=== PATIENT | female | born 1980 | race Caucasian/White ===

== ENCOUNTER 2017-05-07 09:00 | Outpatient (CLI) | payer BC ==
[~2017-05-07] VITALS: Ht 165.1 cm; Wt 93.4 kg
[~2017-05-07 09:00] MED LIST: CPR500T PO; ESCI20TA2 PO; FLUO20CA42; HYDR-34; IBP800T; PREN1TAB4 PO
[2017-05-07] MEDS ORDERED: CHLO500T4 PO (09:14)
[2017-05-07] MEDS ORDERED: AMIT75TA2 PO (09:14)
[2017-05-07] MEDS ORDERED: DICL75TA2 PO (09:14)
[2017-05-07] MEDS ORDERED: OMG1KC PO (09:14)
[2017-05-07] MEDS ORDERED: PSEU-137 PO (09:14)
[2017-05-07] MEDS ORDERED: GUAI600T43 PO (09:14)
[2017-05-07] MEDS ORDERED: MULT-1038 PO (09:14)
== END 2017-05-07 09:27 ==
LOC: PREOP 09:00
PROVIDERS: ATTEND Surgery
DX: Z01.818 Encounter for other preprocedural examination (principal); K42.9 Umbilical hernia without obstruction or gangrene

== ENCOUNTER 2017-05-13 06:10 | Day surgery (SDC) | payer BC ==
[~2017-05-13] VITALS: Ht 165.1 cm; Wt 93.4 kg
[~2017-05-13 06:10] MED LIST changes: +AMIT75TA2 PO; +CHLO500T4 PO; +DICL75TA2 PO; +GUAI600T43 PO; +MULT-1038 PO; +OMG1KC PO; +PSEU-137 PO
--- OUTSIDE RECORDS SUMMARY | 2017-05-13 06:16 | XMS REPORT | Clinical Summary ---
Author Author [facility] Organization [facility] Address Unknown Phone Unavailable Care Team Providers Care Merchandise Carrier Name Role Phone PCP Unavailable Source Comments Some departments are not documenting in the electronic medical record. If you do not see the information that you expected, contact Release of Information in the Health Information Management department at [phone] for further assistance in locating additional records.[facility] Allergies No Known Allergies Current Medications Prescription Sig. Disp. Refills Start End Date Status Date pregabalin (LYRICA) 300 Take 300 mg by mouth Active mg capsule twice daily. tapentadol (NUCYNTA ER) Take by mouth twice daily Active 150 mg Tb12 doxycycline (VIBRAMYCIN) Take 100 mg by mouth Active 100 mg tablet twice daily. topiramate (TOPAMAX) 50 Take 50 mg by mouth. 50mg Active mg tablet AM, 100mg PM allopurinol (ZYLOPRIM) Take 300 mg by mouth Active 300 mg tablet daily. nitrofurantoin Take 100 mg by mouth Active (MACRODANTIN) 100 mg daily. capsule desogestrel-ethinyl Take 1 Tab by mouth Active estradiol (DESOGEN; daily. ORTHO-CEPT (28); APRI; SOLIA; RECLIPSEN (28); EMOQUETTE) tablet DOCOSAHEXANOIC ACID/EPA Take by mouth twice Active (FISH OIL PO) daily. MULTIVITAMIN PO Take by mouth daily. Active loratadine (CLARITIN) 10 Take 10 mg by mouth Active mg tablet daily. oxyCODONE-acetaminophen Take 1-2 Tabs by mouth as Active (PERCOCET; ENDOCET; Needed for Pain ROXICET) 5-325 mg tablet Active Problems Not on file Family History Medical History Relation Name Comments Arthritis Mother Relation Name Status Comments Mother Social History Tobacco Use Types Packs/Day Years Used Date Current Every Day Smoker Cigarettes 0.5 Smokeless Tobacco: Never Used Alcohol Use Drinks/Week oz/Week Comments No Sex Assigned at Date Recorded Not on file Last Filed Vital Signs Vital Sign Reading Time Taken Blood Pressure 116/73 01/04/2015 10:28 AM CDT Pulse 80 01/04/2015 10:28 AM CDT Temperature 36.7 C (98.1 F) 01/04/2015 10:28 AM CDT Respiratory Rate 18 01/04/2015 10:28 AM CDT Oxygen Saturation - - Inhaled Oxygen - - Concentration Weight 97.1 kg (214 lb) 01/04/2015 10:28 AM CDT Height 165 cm (5' 4.96") 01/04/2015 10:28 AM CDT Body Mass Index 35.65 01/04/2015 10:28 AM CDT Plan of Treatment Health Maintenance Due Date Last Done Comments PHYSICAL (COMPREHENSIVE) 1989 EXAM PERTUSSIS VACCINE 1993 TETANUS VACCINE 1999 CERVICAL CANCER SCREENING 02/12/2012 INFLUENZA VACCINE 05/07/2017 Results Not on filefrom Last 3 Months
[2017-05-13] MEDS ORDERED: ceFAZolin 2 GM/50 ML NS 50 ML ONE (06:32)
[2017-05-13] MEDS ORDERED: DEXAMETHASONE 10 MG/ML (DECADRON) 1 ML VIAL ONE (06:42)
[2017-05-13] MEDS ORDERED: MIDAZOLAM 2 MG/2 ML (VERSED) VIAL ONE (06:42)
[2017-05-13] MEDS ORDERED: ONDANSETRON 4 MG/2 ML (SDV) Z0FRAN ONE (06:42)
[2017-05-13] MEDS ORDERED: proPOfol 200 MG/20 ML (DIPRIVAN) VIAL IV ONE (06:42)
[2017-05-13] MEDS ORDERED: LIDOCAINE PF 2% 5 ML (XYLOCAINE) VIAL ONE (06:42)
[2017-05-13] MEDS ORDERED: SEVOFLURANE (ULTANE) 15 ML INHAL SOLN ONE ×4 (06:42→09:57)
[2017-05-13] MEDS ORDERED: fentaNYL INJECTION 100 MCG/2 ML AMP ONE ×2 (06:42→08:34)
[2017-05-13 06:47] LABS: MEAN PLATELET VOLUME 9.3 FL (7.4-10.4); RED BLOOD COUNT 4.45 10^6/uL (4.35-5.85); WHITE BLOOD COUNT 8.9 10^3/uL (4.3-11.0)
[2017-05-13 06:53] VITALS: BP 110/80
[2017-05-13] MEDS: LACTATED RINGERS 1,000 ML IV PRN ×2 (06:57→08:20)
[2017-05-13] MEDS ORDERED: BUPIVACAINE 0.5% 30 ML (SENSORCAINE) VIAL ONE (07:13)
[2017-05-13] MEDS ORDERED: LIDOCAINE 1% INJ 20 ML (XYLOCAINE) VIAL ONE (07:13)
[2017-05-13] MEDS ORDERED: ceFAZolin 2 GM/NS 50 ML IV ONE (07:15)
--- NOTE | 2017-05-13 07:37 | Progress Note-Pre Operative ---
Pre-Operative Progress Note H&P Reviewed The H&P was reviewed, patient examined and no changes noted. Date Seen by Provider: May 13, 2017 Time Seen by Provider: 07:37 Date H&P Reviewed: May 13, 2017 Time H&P Reviewed: 07:37 Pre-Operative Diagnosis: umbilical hernia CARYN COON DO May 13, 2017 7:37 am
[2017-05-13] MEDS ORDERED: GLYCOPYRROLATE 0.2 MG/ML (ROBINUL) 2 ML VIAL ONE (08:21)
[2017-05-13] MEDS ORDERED: NEOSTIGMINE (BLOXIVERZ ) 1 MG/1ML 10 ML VIAL ONE (08:21)
--- NOTE | 2017-05-13 08:35 | Progress Note-Post Operative ---
Post-Operative Progess Note Surgeon (s)/Insole Department Worker (s) Surgeon CARYN COON DO Insole Department Worker: NA Pre-Operative Diagnosis umbilical hernia Post-Operative Diagnosis SAME Procedure & Operative Findings Date of Procedure 05/13/17 Procedure Performed/Findings LAP UMBILICAL HERNIA REPAIR WITH MESH 4.5 IN ECHO Anesthesia Type GEN Estimated Blood Loss Estimated blood loss (mL): MIN Specimens/Packing Specimens Removed NONE CARYN COON DO May 13, 2017 8:35 am
[2017-05-13] MEDS ORDERED: DOCU-143 PO (08:37)
[2017-05-13] MEDS ORDERED: HYDR-3812 PO (08:37)
--- NOTE | 2017-05-13 08:38 | Discharge Inst-Simple/Standard ---
Discharge Inst-Standard Discharge Medications New, Converted or Re-Newed RX: RX on Chart Patient Instructions/Follow Up Plan of Care/Instructions/FU: 2 WEEKS SHAGGY Activity as Tolerated: No Discharge Diet: Regular Diet Other Inst to Patient Follow up Appt: Make appointment for 2-3 week. Instructions: No lifting greater than 10 pounds. No strenuous activity. May shower in 24 hours, no tub bath or soaking. Use incentive spirometer at home as directed. No Smoking Skin/Wound Care: May remove bandages in 48 hours. You need to leave the white strips over incision on they will fall off on their own. Symptoms to Report: Appetite Changes, Extremity Discoloration, Numbness/Tingling, Swelling Increased , Bleeding Excessive, Eyesight Changes, Pain Increased, Urine Color Change, Constipation(Persistent), Fever over 101 degree F, Pain/Pressure in chest, Urinating Difficulty, Cough Up/Vomit Blood, Heart Beat Irreg/Pounding, Pain/ Pressure in jaw, Vaginal Bleeding Increase, Cramps in feet or legs, Lightheadedness, Pain/Pressure in shoulder, Diarrhea(Persistent), Memory Changes Suddenly, Questions/Concerns, Weight gain consecutive days, Dizziness/ Fainting, Nausea/Vomiting, Shortness of Breath, Weight gain over 2 pounds If questions or concerns contact your physician Or seek help at emergency department. CARYN COON DO May 13, 2017 8:38 am
[2017-05-13] MEDS ORDERED: HYDROcodone/APAP 5 MG/325 MG (LORTAB) TAB PO PRN (08:45)
[2017-05-13] MEDS ORDERED: morphine INJ 10 MG/ML 1ML (SYR OR VIAL) ONE (08:57)
[2017-05-13] MEDS: morphine INJ 10 MG/ML 1ML (SYR OR VIAL) IVP PRN ×3 (09:05→09:20)
[2017-05-13] MEDS ORDERED: ONDANSETRON 4 MG/2 ML (SDV) Z0FRAN IVP PRN (09:30)
[2017-05-13] MEDS ORDERED: HYDROmorphone (DILAUDID) 2 MG/ML VIAL IVP PRN (09:30)
[2017-05-13 10:00] VITALS: BP 108/77
[2017-05-13 10:30] VITALS: BP 102/69
--- NOTE | 2017-05-13 10:49 | OPERATIVE REPORT ---
DATE OF SERVICE: 05/13/2017 PREOPERATIVE DIAGNOSIS: Umbilical hernia. POSTOPERATIVE DIAGNOSIS: Umbilical hernia. PROCEDURE: Laparoscopic umbilical hernia repair using 4.5 inch [place] mesh. SURGEON: Caryn Lugo DO. ANESTHESIA: General. ESTIMATED BLOOD LOSS: Minimal. COMPLICATIONS: None. INDICATIONS: The patient is a 37-year-old female with an umbilical hernia which is causing pain and discomfort. She understands risks and benefits of procedure and wished to proceed with procedure. Consent was signed in the chart. PROCEDURE: The patient was taken to the operating suite. She was prepped and draped in sterile fashion. Surgical pause was performed. A 5 mm incision was made in the left upper quadrant. Veress needle was inserted and pneumoperitoneum was achieved. Under direct visualization the laparoscope a 5 mm trocar was then placed. Under direct visualization with a laparoscopic, a 12 mm trocar was placed in the left lower quadrant and a 5 mm trocar was placed in the right upper quadrant. The hernia defect was localized. There are no contents at this time that it had fallen after insufflation, which appears to be omentum that had been adhered to it. Through a stab incision at the umbilicus the defect was closed with an 0 Ethibond. A 4.5 Echo mesh was then inserted into the abdomen and grasped with a Omar-Hood, insufflated and using a secure Tacker outer crown was created and also an inner crown was created after the balloon was removed. The defect had adequate coverage and overlay. The 12 mm fascial defect was then closed using 0 Vicryl with an Endoclose after removing the 12 mm trocars. The abdomen was then desufflated, and the trocars were removed. The skin was then closed using 4-0 Vicryl in a running subcuticular fashion. Mastisol and Steri-Strips were applied after the incisions were washed and dried. Sterile bandages were applied. The patient tolerated the procedure well without any complications. She was taken to recovery room in stable condition. Job ID: [id number] DocumentID: [id number] Dictated Date: 05/13/2017 08:56:36 Machine Deicer Element Winder Date: 05/13/2017 10:49:03 Dictated By: CARYN LUGO DO
[2017-05-13] MEDS ORDERED: diphenhydrAMINE 25 MG TAB (BENADRYL) PO ONE ×2 (10:51→11:15)
[2017-05-13 11:00] VITALS: BP 106/65
[2017-05-13 11:59] VITALS: BP 106/65
== END 2017-05-13 11:59 | disposition home or self-care (01) ==
LOC: SDC 06:10
PROVIDERS: ATTEND Surgery
DX: K42.9 Umbilical hernia without obstruction or gangrene (principal); Z11.2 Encounter for screening for other bacterial diseases; F32.9 Major depressive disorder, single episode, unspecified; M79.7 Fibromyalgia; F17.210 Nicotine dependence, cigarettes, uncomplicated; Z79.899 Other long term (current) drug therapy
CPT/HCPCS: 36415; 84703; 85027; 87081

== ENCOUNTER → 2019-05-26 | Outpatient (CLI) | payer BC ==
[~2019-05-26] MED LIST changes: +ACHD5005 PO; +DOCU-143 PO; +GADOBUTROL 15 MMOL/15 ML (GADAVIST) VIAL IV ONE
--- NOTE | 2019-05-26 11:34 | Diagnostic Imaging Report ---
PROCEDURE: MR imaging of the brain with and without contrast. TECHNIQUE: Multiplanar, multisequence MR imaging of the brain was performed with and without contrast. INDICATION: Complaint of headaches. COMPARISON: none Findings: No acute ischemia, mass, or hemorrhage. No abnormal enhancement. The ventricles, cortical sulci, and basilar cisterns are symmetric and unremarkable. The sellar and suprasellar regions have a normal appearance. The brainstem and posterior fossa are unremarkable. The paranasal sinuses and mastoid air cells demonstrate normal signal characteristics. The globes and orbits are symmetric and unremarkable. The scalp and calvarium have a normal appearance. Impression: 1. No acute ischemia, mass, or hemorrhage. No abnormal enhancement. Dictated by: Dictated on workstation # [id number]
== END ==
LOC: RAD 10:11
PROVIDERS: ATTEND Nurse Practitioner Family
DX: G43.809 Other migraine, not intractable, without status migrainosus (principal); R42 Dizziness and giddiness
CPT/HCPCS: 70553

== ENCOUNTER 2020-03-30 11:23 | Emergency (ER) | payer BC ==
[~2020-03-30] VITALS: Ht 165.1 cm; Wt 115.4 kg
[~2020-03-30 11:23] MED LIST changes: -GADOBUTROL 15 MMOL/15 ML (GADAVIST) VIAL IV ONE
[2020-03-30] MEDS ORDERED: ADENOSINE 6 MG/2 ML (ADENOCARD) VIAL IV ONE ×3 (11:36→11:45)
[2020-03-30] MEDS ORDERED: NS IV 1000 ML 1,000 ML IV SCH (11:39)
--- NOTE | 2020-03-30 11:41 | NUR ---
CONVERT TO ST WITH RATE OF 116
[2020-03-30] MEDS ORDERED: ASPIRIN 81 MG CHEW (CHILDREN'S ASA) PO ONE (11:45)
--- NOTE | 2020-03-30 11:52 | ED Cardiac General ---
History of Present Illness General Stated Complaint: HIGH HEARTRATE - 194 - SOA Source: patient Exam Limitations: no limitations History of Present Illness Date Seen by Provider: Mar 30, 2020 Time Seen by Provider: 11:40 Initial Comments Patient resents ER by private conveyance from [facility] with chief complaint that she woke up this morning about 6:00 AM with shortness of breath and feeling her heart was racing. She has not had any caffeine today but she did start drinking coffee again 2 weeks ago after being off it for over a year. She has a history of shortness of breath for the past year and has been started on a inhaled steroid because she had fluid on her lungs. She denies a history of asthma. She's not a smoker but she does use a vaporizer. She denies any recreational drugs or stimulants. No history of heart disease or heart failure that she is aware of. No swelling or edema. No chest pain cough fevers or chills. She is on medicines for irritable bowel and depression. She was put on some medications for presumed fibromyalgia but then it was discovered she had Lyme disease after being treated for that she got off of her fibromyalgia medicines. She continues to take amitriptyline. Allergies and Home Medications Allergies Coded Allergies: No Known Drug Allergies (Verified , 05/06/08) Home Medications Amitriptyline HCl 75 Mg Tablet, 75 MG PO HS, (Reported) Chlorzoxazone 500 Mg Tablet, 500 MG PO TID PRN for MUSCLE SPASMS, (Reported) Docusate Sodium 100 Mg Capsule, 100 MG PO BID Prescribed by: CARYN COON on 05/13/17 0837 Hydrocodone Bit/Acetaminophen 1 Each Tablet, 1 TAB PO Q4H PRN Prescribed by: CARYN COON on 05/13/17 0837 Multivit/Iron/FA/K/Herb No.244 1 Each Tablet, 1 EACH PO DAILY, (Reported) [place] 3 Polyunsat Fatty Acids 1,000 Mg Cap, 1,000 MG PO DAILY, (Reported) Patient Home Medication List Home Medication List Reviewed: Yes Review of Systems Review of Systems Constitutional: No chills; diaphoresis; No fever, No malaise; weakness EENTM: No Blurred Vision, No Double Vision Respiratory: Denies Cough; Shortness of Air Cardiovascular: Denies Chest Pain, Denies Edema, Denies Irregular Heart Rate Gastrointestinal: Denies Abdominal Pain, Denies Constipated, Denies Diarrhea, Denies Difficulty Swallowing, Denies Nausea Genitourinary: Denies Burning, Denies Discharge Musculoskeletal: No back pain, No joint pain Skin: No pruritus, No rash All Other Systems Reviewed Negative Unless Noted: Yes Past Fpvitgq-Nmcdom-Iqjwln Hx Patient Social History Alcohol Use: Denies Use Recreational Drug Use: No Smoking Status: Former Smoker Type Used: Cigarettes, Electronic/Vapor Recent Foreign Travel: No Contact w/Someone Who Travel: No Recent Hopitalizations: No Seasonal Allergies Seasonal Allergies: Yes Past Medical History Reproductive Disorders: No Depression Physical Exam Vital Signs Vital Signs - First Documented 03/30/20 11:23 Pulse 210 Resp 18 B/P (MAP) 122/95 (104) Pulse Ox 98 O2 Delivery Room Air Capillary Refill : Height, Weight, BMI Height: 5'5.00" Weight: 206lbs. 0.0oz. 93.824051gf; 34.3 BMI Method: General Appearance: WD/WN, Moderate Distress HEENT: PERRL/EOMI, Pharynx Normal, Moist Mucous Membranes Neck: Full Range of Motion, Normal Inspection Respiratory: Lungs Clear, Normal Breath Sounds, No Accessory Muscle Use, No Respiratory Distress Cardiovascular: Regular Rate, Rhythm, Normal Peripheral Pulses, Tachycardia Gastrointestinal: Normal Bowel Sounds, Non Tender, Soft Extremity: Normal Capillary Refill, No Pedal Edema Neurologic/Psychiatric: Alert, Oriented x3, No Motor/Sensory Deficits, Normal Mood/Affect Skin: Normal Color, Warm/Dry Progress/Results/Core Measures Results/Orders Lab Results Laboratory Tests Test 03/30/20 11:38 Range/Units White Blood Count 9.5 4.3-11.0 10^3/uL Red Blood Count 4.93 4.35-5.85 10^6/uL Hemoglobin 14.2 11.5-16.0 G/DL Hematocrit 43 35-52 % Mean Corpuscular Volume 87 80-99 FL Mean Corpuscular Hemoglobin 29 25-34 PG Mean Corpuscular Hemoglobin Concent 33 32-36 G/DL Red Cell Distribution Width 13.8 10.0-14.5 % Platelet Count 435 H 130-400 10^3/uL Mean Platelet Volume 9.4 7.4-10.4 FL Neutrophils (%) (Auto) 64 42-75 % Lymphocytes (%) (Auto) 28 12-44 % Monocytes (%) (Auto) 7 0-12 % Eosinophils (%) (Auto) 1 0-10 % Basophils (%) (Auto) 0 0-10 % Neutrophils # (Auto) 6.1 1.8-7.8 X 10^3 Lymphocytes # (Auto) 2.7 1.0-4.0 X 10^3 Monocytes # (Auto) 0.6 0.0-1.0 X 10^3 Eosinophils # (Auto) 0.1 0.0-0.3 10^3/uL Basophils # (Auto) 0.0 0.0-0.1 10^3/uL Prothrombin Time 13.1 12.2-14.7 SEC INR Comment 1.0 0.8-1.4 Activated Partial Thromboplast Time 30 24-35 SEC Sodium Level 140 135-145 MMOL/L Potassium Level 4.1 3.6-5.0 MMOL/L Chloride Level 105 98-107 MMOL/L Carbon Dioxide Level 17 L 21-32 MMOL/L Anion Gap 18 H 5-14 MMOL/L Blood Urea Nitrogen 12 7-18 MG/DL Creatinine 0.76 0.60-1.30 MG/DL Estimat Glomerular Filtration Rate > 60 BUN/Creatinine Ratio 16 Glucose Level 108 H 70-105 MG/DL Calcium Level 9.1 8.5-10.1 MG/DL Corrected Calcium 8.7 8.5-10.1 MG/DL Magnesium Level 2.1 1.6-2.4 MG/DL Total Bilirubin 0.4 0.1-1.0 MG/DL Aspartate Amino Transf (AST/SGOT) 57 H 5-34 U/L Alanine Aminotransferase (ALT/SGPT) 38 0-55 U/L Alkaline Phosphatase 84 40-136 U/L Myoglobin 29.5 10.0-92.0 NG/ML Troponin I 0.028 <0.028 NG/ML Total Protein 8.0 6.4-8.2 GM/DL Albumin 4.5 3.2-4.5 GM/DL Serum Test, Qualitative NEGATIVE NEGATIVE My Orders Orders - JOHNNY TARIQ Ekg Tracing (03/30/20 11:27) Continuous Ekg Monitoring (03/30/20 11:27) Adenosine Injection (Adenocard Injection (03/30/20 11:36) Adenosine Injection (Adenocard Injection (03/30/20 11:45) Adenosine Injection (Adenocard Injection (03/30/20 11:45) Cbc With Automated Diff (03/30/20 11:39) Magnesium (03/30/20 11:39) Chest 1 View, Ap/Pa Only (03/30/20 11:39) Comprehensive Metabolic Panel (03/30/20 11:39) Myoglobin Serum (03/30/20 11:39) Protime With Inr (03/30/20 11:39) Partial Thromboplastin Time (03/30/20 11:39) O2 (03/30/20 11:39) Lipid Panel (03/31/20 06:00) Ed Iv/Invasive Line Start (03/30/20 11:39) Troponin I (03/30/20 11:39) Aspirin Chewable Tablet (Baby Aspirin Ch (03/30/20 11:45) Ed Iv/Invasive Line Start (03/30/20 11:39) Ns Iv 1000 Ml (Sodium Chloride 0.9%) (03/30/20 11:39) Ekg Tracing (03/30/20 11:48) Hcg,Qualitative Serum (03/30/20 11:48) Medications Given in ED Current Medications Medications Dose Ordered Sig/Marty Route Start Time Stop Time Status Last Admin Dose Admin Adenosine 6 mg ONCE ONCE IV 03/30/20 11:45 03/30/20 11:46 DC 03/30/20 11:39 6 MG Aspirin 324 mg ONCE ONCE PO 03/30/20 11:45 03/30/20 11:46 DC 03/30/20 12:11 324 MG Vital Signs/I&O 03/30/20 11:23 Pulse 210 Resp 18 B/P (MAP) 122/95 (104) Pulse Ox 98 O2 Delivery Room Air Progress Progress Note : Time: 13:42 Progress Note After a dose of 6 mg adenosine the patient's heart rate came down from 205-110. Initial EKG showed supraventricular tachycardia. She has been maintained ever since then. Regarding give her 100 mg Toprol-XL and let her go home on that. We've discussed the case with Dr. Jasso he agrees with the plan would like to see her Wednesday morning in the clinic. She's had no anginal symptoms. She's feeling much better. Heart rate is presently in the mid 90s with a blood pressure 153/106. Initial ECG Impression Date: Mar 30, 2020 Initial ECG Impression Time: 11:33 Initial ECG Rate: 205 Initial ECG Rhythm: SVT Initial ECG Impression: SVT Initial ECG Comparisson: No Previous ECG Available Comment Superventricular tachycardia. EKG : EKG Time: 11:43 Rate: 111 Rhythm: S.Tach Intervals: Normal ECG Comparisson: Changed ECG Impression: Normal Comment Sinus tachycardia without the relevant ST changes. Diagnostic Imaging Diagonstic Imaging: Xray Plain Films/CT/US/NM/MRI: chest (1v) Comments [facility] [place] [place] NAME: CASSIDY GLOVER [facility] REC#: [id number] PT STATUS: REG ER : 1980 PHYSICIAN: JOHNNY TARIQ MD ADMIT DATE: 03/30/20/ER Draft Date of Exam:03/30/20 CHEST 1 VIEW, AP/PA ONLY INDICATION: Chest pain COMPARISON: None available TECHNIQUE: Single radiograph of the chest dated 03/30/2020. FINDINGS: The cardiac silhouette is within normal limits in size. No significant pulmonary vascular congestion. The lungs are clear. No pleural effusion. No pneumothorax. No acute osseous abnormality. IMPRESSION: No acute cardiopulmonary abnormality. Dictated on workstation # [id number] Dict: 03/30/20 1224 Trans: 03/30/20 1238 [facility] [id number] Interpreted by: MAUREEN FRANCISCO MD Electronically signed by: Reviewed: Reviewed by Me Departure Impression Primary Impression: Paroxysmal SVT (supraventricular tachycardia) Disposition: 01 HOME, SELF-CARE Condition: Improved Departure-Patient Inst. Decision time for Depature: 13:51 Referrals: BLANCA FERRERA MD (PCP/Family) Primary Care Physician VALERI JASSO MD FACP FAC CCDS Patient Instructions: Supraventricular Tachycardia (SVT) Add. Discharge Instructions: You have had a rapid heart rate known as super ventricular tachycardia. We are going to give you medicine called metoprolol will help keep you from going back into that rapid rhythm. You take a tablet once daily and then plan to follow up Wednesday with Dr. Jasso, cardiology by calling for an appointment Wednesday morning. If you feel the same symptoms again you can try the Valsalva maneuvers and if they're not immediately helpful then please return to the nearest ER. Scripts Metoprolol Succinate (Metoprolol Succinate) 100 Mg Tab.er.24h 100 MG PO DAILY for 10 Days, #10 TAB 0 Refills Prov: JOHNNY TARIQ 03/30/20 Copy Copies To 1: VALERI JASSO MD FACP FAC CCDS JOHNNY TARIQ Mar 30, 2020 11:52
[2020-03-30 11:55] LABS: BASOPHILS % (AUTO) 0 % (0-10); EOSINOPHILS # (AUTO) 0.1 10^3/uL (0.0-0.3); EOSINOPHILS % (AUTO) 1 % (0-10); HEMATOCRIT 43 % (35-52); HEMOGLOBIN 14.2 G/DL (11.5-16.0); LYMPHOCYTES # (AUTO) 2.7 X 10^3 (1.0-4.0); LYMPHOCYTES % (AUTO) 28 % (12-44); MEAN CORPUSCULAR HEMOGLOBIN 29 PG (25-34); MEAN CORPUSCULAR HGB CONC 33 G/DL (32-36); MEAN CORPUSCULAR VOLUME 87 FL (80-99); MEAN PLATELET VOLUME 9.4 FL (7.4-10.4); MONOCYTES # (AUTO) 0.6 X 10^3 (0.0-1.0); MONOCYTES % (AUTO) 7 % (0-12); NEUTROPHILS # (AUTO) 6.1 X 10^3 (1.8-7.8); NEUTROPHILS % (AUTO) 64 % (42-75); PLATELET COUNT 435 10^3/uL (130-400); RED CELL DISTRIBUTION WIDTH 13.8 % (10.0-14.5); WHITE BLOOD COUNT 9.5 10^3/uL (4.3-11.0)
[2020-03-30 12:07] LABS: ALBUMIN 4.5 GM/DL (3.2-4.5); CHLORIDE 105 MMOL/L (98-107); POTASSIUM 4.1 MMOL/L (3.6-5.0); SODIUM 140 MMOL/L (135-145)
[2020-03-30 12:08] LABS: CALCIUM 9.1 MG/DL (8.5-10.1)
[2020-03-30 12:09] LABS: GLUCOSE 108 MG/DL (70-105)
[2020-03-30 12:10] LABS: CARBON DIOXIDE 17 MMOL/L (21-32); PROTHROMBIN TIME PATIENT 13.1 SEC (12.2-14.7)
[2020-03-30 12:11] LABS: BILIRUBIN,TOTAL 0.4 MG/DL (0.1-1.0)
[2020-03-30 12:13] LABS: ALKALINE PHOSPHATASE 84 U/L (40-136); CREATININE SERUM 0.76 MG/DL (0.60-1.30); GFR ESTIMATED > 60
[2020-03-30 12:14] LABS: BUN/CREATININE RATIO 16
[2020-03-30 12:16] LABS: ALANINE AMINOTRANSFERASE 38 U/L (0-55); MAGNESIUM 2.1 MG/DL (1.6-2.4)
--- NOTE | 2020-03-30 12:38 | Diagnostic Imaging Report ---
INDICATION: Chest pain COMPARISON: None available TECHNIQUE: Single radiograph of the chest dated 03/30/2020. FINDINGS: The cardiac silhouette is within normal limits in size. No significant pulmonary vascular congestion. The lungs are clear. No pleural effusion. No pneumothorax. No acute osseous abnormality. IMPRESSION: No acute cardiopulmonary abnormality. Dictated by: Dictated on workstation # [id number]
[2020-03-30] MEDS ORDERED: meTOproloL SUCCINATE 50 MG (TOPROL XL) TAB PO ONE (13:53)
[2020-03-30] MEDS ORDERED: MTP100TCR PO (13:54)
[2020-03-30] MEDS ORDERED: meTOprolol SUCCINATE 100 MG (TOPROL XL) TAB PO ONE (14:00)
[2020-03-30 14:04] VITALS: BP 134/95
== END 2020-03-30 14:09 | disposition home or self-care (01) ==
LOC: EDUNIT# 11:23 → ER 11:24
DX: I47.1 Supraventricular tachycardia (principal); F32.9 Major depressive disorder, single episode, unspecified; K58.9 Irritable bowel syndrome, unspecified; Z87.891 Personal history of nicotine dependence
CPT/HCPCS: 36415; 71045; 80053; 83735; 83874; 84484; 84703; 85025; 85610; 85730; 93005

== ENCOUNTER → 2020-04-10 | Outpatient (CLI) | payer BC ==
[~2020-04-10] MED LIST changes: +MTP100TCR PO
== END ==
LOC: CARD 12:50
PROVIDERS: ATTEND Internal Medicine Cardiovascular Disease
DX: I47.1 Supraventricular tachycardia (principal)
CPT/HCPCS: 93306

== ENCOUNTER 2020-06-27 15:00 | Outpatient (RCR) | payer BC | END 2020-09-25 | disposition home or self-care (01) | LOC: CARD 15:00 | PROVIDERS: ATTEND Nurse Practitioner Family | DX: R00.2 Palpitations (principal); R00.0 Tachycardia, unspecified | CPT/HCPCS: 93225; 93226 ==

== ENCOUNTER → 2023-01-20 | Outpatient (CLI) | payer BC ==
[~2023-01-20] MED LIST changes: -PSEU-137 PO; +PSEU-182 PO
[2023-01-20 14:03] VITALS: BP 107/71
--- NOTE | 2023-01-20 15:21 | Cardiology Stress Test Report ---
Stress Test Report Date of Procedure/Referring: Date of Procedure: January 20, 2023 PCP Blanca Su MD Admitting Physician Admitting Physician: Attending Physician: Conor Zelaya MD Baseline Heart Rate: 74 Baseline Blood Pressure: Blood Pressure Systolic: 107 Blood Pressure Diastolic: 71 Baseline EKG: Baseline EKG: NSR Summary/Conclusion: Summary: In summary, the patient started exercising with a baseline heart rate, blood pressure and EKG mentioned above Patient was able to exercise for a total of 8 minutes on Gui protocol, METs 9.7 Maximum heart rate 167 Maximum blood pressure 124/60 Stress EKG, Minimal nondiagnostic changes Recovery EKG , Return to baseline Conclusion: 1. Good exercise tolerance for a total of 8 minutes on Gui protocol, 9.7 METs, achieving 92 percent of maximum expected heart rate 2. Nondiagnostic EKG changes with exercise return to baseline during recovery, patient has upsloping ST depression in lead II, III, aVF, V4 and V5 in addition to diffuse T wave inversion 3. No arrhythmia was noted Copy Copies To 1: BLANCA SU MD, BASHAR J MD January 20, 2023 15:21
== END ==
LOC: CARD 13:15
PROVIDERS: ATTEND Internal Medicine Cardiovascular Disease
DX: R07.9 Chest pain, unspecified (principal)
CPT/HCPCS: 93017